=== PATIENT | female | born 1970 | race African-American/Black ===

== ENCOUNTER 2019-06-29 07:54 | Emergency (ER) | payer SELFPAY ==
[~2019-06-29] VITALS: Ht 167.6 cm; Wt 73.0 kg
[2019-06-29 07:59] VITALS: BP 135/87
== END 2019-06-29 09:40 | disposition left against medical advice (07) ==
LOC: ER 07:54
DX: Z53.21 Procedure and treatment not carried out due to patient leaving prior to being seen by health care provider (principal)